=== PATIENT | female | born 1945 | race Caucasian/White ===

== ENCOUNTER → 2018-07-29 | Outpatient (CLI) | payer MEDICARE ==
[~2018-07-29] MED LIST: ASPI81TA59 PO; CAPT12.52 PO; LEVO100T PO; LEVO75TA PO; METO25TA91 PO; QUET25TA5 PO; RANI150C PO; REGADENOSON 0.4 MG/5 ML SYRINGE ONE; ROSU10TA2 PO; TICA90TA PO
== END | disposition home or self-care (01) ==
LOC: CFH 11:37
PROVIDERS: ATTEND Internal Medicine Cardiovascular Disease
DX: I10 Essential (primary) hypertension (principal); I21.02 ST elevation (STEMI) myocardial infarction involving left anterior descending coronary artery; I45.10 Unspecified right bundle-branch block
CPT/HCPCS: 78452; 93017; A9502; J2785